=== PATIENT | female | born 1980 | race American Indian/Alaskan Native ===

== ENCOUNTER 2020-12-05 19:35 | Emergency (ER) | payer SELFPAY | END 2020-12-05 20:30 | disposition left against medical advice (07) | LOC: ED 19:35 | DX: O20.9 Hemorrhage in early pregnancy, unspecified (principal); Z3A.13 13 weeks gestation of pregnancy; Z53.21 Procedure and treatment not carried out due to patient leaving prior to being seen by health care provider ==

== ENCOUNTER 2021-03-03 11:39 | Emergency (ER) | payer OTHER ==
[2021-03-03 12:55] VITALS: BP 108/70
== END 2021-03-03 14:26 | disposition left against medical advice (07) ==
LOC: ED 11:39
DX: R51.9 Headache, unspecified (principal); Z53.21 Procedure and treatment not carried out due to patient leaving prior to being seen by health care provider

== ENCOUNTER 2021-03-23 13:32 | Emergency (ER) | payer OTHER | END 2021-03-23 16:35 | disposition left against medical advice (07) | LOC: ED 13:32 | DX: N30.90 Cystitis, unspecified without hematuria (principal); Z53.21 Procedure and treatment not carried out due to patient leaving prior to being seen by health care provider ==